=== PATIENT | female | born 1950 | race Caucasian/White ===

== ENCOUNTER 2025-05-16 08:02 | Observation (INO) ==
--- NOTE | 2025-05-16 08:26 | Emergency Department Note ---
Impression & Plan Dizziness, Mild cognitive impairment, Shortness of breath ED Provider Note NAME: JOSE BOB AGE: 74 SEX: F : 1950 ARRIVES VIA: Walk-In INFORMANT: Patient ED PROVIDER(S): Yash Moe DO CHIEF COMPLAINT: Dizzy HPI: Patient is a 74-year-old female with a past medical history of an acoustic neuroma, mild cognitive impairment who presents to the ER for dizziness and shortness of breath. When she woke up she noticed that she was short of breath and she is very unsteady on her feet and cannot walk as she feels like she is going to fall over and everything is spinning. She denies any focal weakness or numbness in the arms or legs but does feel weaker all over. No dysuria, urgency or frequency. She does admit to some mild chest discomfort as well. No other exacerbating or remitting factors. ADDITIONAL HISTORY OBTAINED: Son is present at bedside notes that everything habits happened since waking up this morning Chronic Medical/Social Conditions Affecting Care: Per HPI PAST MEDICAL HISTORY:See Below PAST SURGICAL HISTORY:See Below FAMILY HISTORY:See Below SOCIAL HISTORY:See Below HOME MEDICATIONS:See Below ALLERGIES:See Below VITALS:See Below PHYSICAL EXAMINATION: GENERAL: Sitting up in bed, alert, well appearing, well nourished, no distress, non-toxic EYE EXAM: normal conjunctiva. PERRL and EOM's intact. OROPHARYNX: no exudate, no erythema, lips, buccal mucosa, and tongue normal and mucous membranes are moist NECK: supple, no nuchal rigidity, no adenopathy, non-tender LUNGS: Clear to auscultation. Normal chest wall mechanics HEART: no murmurs, S1 normal and S2 normal ABDOMEN: abdomen soft, non-tender, normo-active bowel sounds, no masses, no rebound or guarding. BACK: Back is symmetrical on inspection and there is no deformity, no midline tenderness, no CVA tenderness. SKIN: no rashes and no bruising UPPER EXTREMITIES: upper extremities are grossly normal. LOWER EXTREMITIES: No pitting edema. NEURO EXAM: Normal sensorium, cranial nerves II-XII intact, normal speech, no weakness of arms, no weakness of legs. No drift. Finger to nose intact. Gross sensation intact. MEDICAL DECISION MAKING: Patient is a 74-year-old female who presents ER with a past medical history of mild cognitive impairment for shortness of breath, chest pain and dizziness. Symptoms started when she woke up earlier today. Per the son who provides additional history as she is having trouble walking. IV was established and blood work was obtained. Labs show no significant leukocytosis or anemia. D- dimer was elevated. BMP with mild hypokalemia 3.4. LFTs bilirubin and magnesium was unremarkable. Troponin was negative. Lipase was normal. CT angios of the head and neck were negative. CT angio chest was obtained and was negative. Patient was given Antivert and updated at bedside. Discussed case with the hospitalist for further evaluation management treatment due to trouble walking. I do favor a portion of this is likely anxiety as the tachypnea comes and goes when she is not talking but when she is talking she has normal fluid full conversations without difficulty. Consults/Care Managements Discussions: Per [facility] Triage Nursing notes reviewed. Limited review of prior medical records performed Vital Signs: reviewed and remarkable for no significant abnormalities Differential diagnosis: Differential diagnosis includes etiologies such as benign positional vertigo, dehydration, hypovolemia, anemia, tumor, infection, hypoglycemia, electrolyte abnormalities, cardiac sources, intracerebral event, toxicologic, neurological, as well as others were entertained. ER treatment provided: See below Diagnostics interpreted by me include EKG and cardiac monitoring as listed below: -Cardiac Monitoring: An order was placed for continuous cardiac monitoring. The monitor shows a rate of 70 with sinus rhythm. -ECG: none -Laboratory studies:Interpreted by me as stated above in MDM and shown below. Imaging studies: Xrays: As interpreted by me: Portable AP upright 1 view of the chest shows no focal Lutrate CTs show: CT angios of the head and neck were negative per radiology Procedures:none Critical Care: None Past Med/Surg History Problem List (Updated 05/16/25 @ 13:43 by Yash Moe DO) Shortness of breath (Acute) Vertigo Dizziness (Acute) Ulnar nerve neuropathy Acoustic neuroma Mild cognitive impairment (Acute) History of total thyroidectomy Papillary thyroid carcinoma Hypothyroidism (acquired) Medical History (Updated 05/16/25 @ 13:43 by Yash Moe DO) Mild cognitive impairment Hx of thyroid cancer History of hypothyroidism Surgical History Hx of foot surgery left Hx of lumbosacral spine surgery x2, most recent ~2020 or earlier, lower back History of total left knee replacement History of total right knee replacement Hx of colonoscopy (2023) Hx of wisdom tooth extraction Hx of total thyroidectomy ~2018 Family History Family history non-contributory Bleeding ulcer Mother Thyroid cancer Sister Diabetes Father Arthritis Father Lymphoma Sister Parkinson disease Brother Social History Smoking Status: Never smoker Second Hand Exposure: No; Do You Dip or Chew Tobacco: No; Hx Alcohol Use: Yes Alcohol type: wine Alcohol Intake Frequency: 2-4 x/Month Hx Substance Use: No Preferred Language: [place]al[place] Communication Ability: Effective Technician Support Engineer Required: No Beliefs That Will Affect Care: None Current Living Situation: Alone Feels Safe at Home: Yes Assistive Devices: Glasses Allergies Allergies Allergy/AdvReac Type Severity Reaction Status Date / Time amoxicillin Allergy Severe Anaphylaxis Verified 03/03/25 10:58 adhesive Allergy Mild RED LEMUEL Verified 03/03/25 10:58 ON SKIN gabapentin Allergy Mild Dizziness Verified 03/03/25 10:58 Penicillins Allergy Mild RASH Verified 03/03/25 10:58 Home Meds Home Medications Medication Instructions Recorded Confirmed multivitamin 1 tab PO HS 01/18/19 05/16/25 cholecalciferol (vitamin D3) 25 2,000 unit PO HS 03/09/24 05/16/25 mcg (1,000 unit) capsule (Vitamin D3) triamcinolone acetonide 55 mcg 1 spray intranasal DAILY PRN 03/09/24 05/16/25 nasal spray aerosol (Nasacort Congestion Allergy) Prevagen 1 cap PO QAM 02/17/25 05/16/25 levothyroxine 100 mcg tablet 100 mcg PO QAM 02/17/25 05/16/25 acetaminophen 500 mg tablet 1,000 mg PO Q8H PRN Pain 04/01/25 05/16/25 (Tylenol Extra Strength) Previous Rx's Medication Instructions Recorded hydrocodone 5 mg-acetaminophen 325 1 tab PO Q4H PRN pain #10 tabs 03/03/25 mg tablet ibuprofen 200 mg tablet (Advil) 600 mg (3 x 200 mg) PO QID PRN 03/03/25 fever or pain #30 tabs Results & Data (ED) Vital Signs Vital Signs - 24 hr 08/11/25 08:03 05/16/25 08:03 05/16/25 08:38 Temperature 36.6 C Temperature Source Temporal Artery Scan Pulse Rate 84 84 Pulse Rate [Apical] Pulse Rhythm Regular Pulse Rhythm [Apical] Pulse Strength [Apical] Respiratory Rate 18 18 Respiratory Effort / Characteristics Respiratory Depth Respiratory Pattern Blood Pressure 150/90 H Blood Pressure [Right Arm] Blood Pressure Mean 110 Blood Pressure Mean [Right Arm] Pulse Oximetry 100 100 Oxygen Delivery Method Room Air Room Air Sepsis Recent Fever Within 48 Hours No Sepsis New/Unexplained Change in Mental Status N/A Sepsis Action Taken by Nursing No Action Required 05/16/25 08:57 05/16/25 09:21 05/16/25 09:30 Temperature Temperature Source Pulse Rate 76 66 63 Pulse Rate [Apical] Pulse Rhythm Pulse Rhythm [Apical] Pulse Strength [Apical] Respiratory Rate 23 22 Respiratory Effort / Characteristics Respiratory Depth Respiratory Pattern Blood Pressure Blood Pressure [Right Arm] Blood Pressure Mean Blood Pressure Mean [Right Arm] Pulse Oximetry Oxygen Delivery Method Sepsis Recent Fever Within 48 Hours Sepsis New/Unexplained Change in Mental Status Sepsis Action Taken by Nursing 05/16/25 10:03 05/16/25 10:15 05/16/25 11:36 Temperature Temperature Source Pulse Rate 59 L Pulse Rate [Apical] 61 64 Pulse Rhythm Pulse Rhythm [Apical] Regular Regular Pulse Strength [Apical] Normal Respiratory Rate 18 15 18 Respiratory Effort / Characteristics Non-Labored Non-Labored Spontaneous Respiratory Depth Normal Normal Respiratory Pattern Regular Regular Blood Pressure Blood Pressure [Right Arm] 180/103 H 160/93 H Blood Pressure Mean Blood Pressure Mean [Right Arm] 128 115 Pulse Oximetry 100 93 Oxygen Delivery Method Room Air Room Air Sepsis Recent Fever Within 48 Hours Sepsis New/Unexplained Change in Mental Status Sepsis Action Taken by Nursing 05/16/25 12:50 Temperature Temperature Source Pulse Rate Pulse Rate [Apical] 65 Pulse Rhythm Pulse Rhythm [Apical] Pulse Strength [Apical] Normal Respiratory Rate 18 Respiratory Effort / Characteristics Non-Labored Spontaneous Respiratory Depth Normal Respiratory Pattern Regular Blood Pressure Blood Pressure [Right Arm] 154/89 H Blood Pressure Mean Blood Pressure Mean [Right Arm] 110 Pulse Oximetry 98 Oxygen Delivery Method Room Air Sepsis Recent Fever Within 48 Hours Sepsis New/Unexplained Change in Mental Status Sepsis Action Taken by Nursing Laboratory Data 05/16/25 08:50 05/16/25 08:50 Lab Results 05/16/25 05/16/25 Range/Units 08:50 12:13 WBC 7.64 (4.8-10.8) K/ul RBC 5.45 H (4.20-5.40) M/uL Hgb 16.4 H (12.0-16.0) g/dl Hct 46.2 (37.0-47.0) % MCV 84.8 (80.0-100.0) fL MCH 30.1 (25.0-34.0) pg MCHC 35.5 (32.0-36.0) g/dL RDW Std Deviation 39.7 (36.4-46.3) fL RDW Coeff of Corrina 13.1 (11.5-14.5) % Plt Count 283 (130-400) K/uL MPV 10.1 (9.4-12.4) fL Immature Gran % (Auto) 0.3 % Neut % (Auto) 65.0 % Lymph % (Auto) 26.4 % [place]ell % (Auto) 6.7 % Eos % (Auto) 0.8 % Baso % (Auto) 0.8 % Neut # (Auto) 4.97 (1.40-6.50) K/uL Lymph # (Auto) 2.02 (1.20-3.40) K/uL [place]ell # (Auto) 0.51 (0.11-0.59) K/uL Eos # (Auto) 0.06 (0.00-0.50) K/uL Baso # (Auto) 0.06 (0.00-0.20) K/uL Immature Gran # (Auto) 0.02 (0.01-0.20) K/uL D-Dimer 730 H* (0-500) ug/L FEU Sodium 141 (136-145) mmol/L Potassium 3.4 L (3.5-5.1) mmol/L Chloride 107 (98-107) mmol/L Carbon Dioxide 23 (21-32) mmol/L Anion Gap 11 (3-11) BUN 17 (6-23) mg/dl Creatinine 0.80 (0.6-1.2) mg/dl Est Cr Clr Drug Dosing Not Reportable eGFR 76.31 BUN/Creatinine Ratio 21.3 H (10-20) Glucose 87 (70-99(Fasting)) mg/dl Calcium 9.9 (8.6-10.3) mg/dl Magnesium 2.0 (1.7-2.4) mg/dl Total Bilirubin 1.2 H (0.2-1.0) mg/dl AST 22 (13-39) U/L ALT 19 (7-52) U/L Alkaline Phosphatase 123 H (34-104) U/L Troponin I High Sens 5.6 (0-14) pg/ml Total Protein 7.4 (6.0-8.3) gm/dl Albumin 4.5 (3.4-5.0) gm/dl Globulin 2.9 (2.5-4.0) gm/dl Albumin/Globulin Ratio 1.6 (0.9-2) Lipase 32 (11-82) U/L Vitamin B12 533 (180-914) pg/ml Administered Medications Atorvastatin Calcium (Atorvastatin 20 Mg Tab) [facility] [place] Stop: 06/15/25 12:44 Last Admin: 05/16/25 13:30 Dose: 20 mg Documented By: GGG Discontinued Medications Aspirin (Aspirin 81 Mg Chew) 162 mg PO NOW STA Stop: 05/16/25 12:40 Last Admin: 05/16/25 12:48 Dose: 162 mg Documented By: RADHA Ioversol (Optiray 320 125ml) 120 ml IV ONCE ONE Stop: 05/16/25 10:40 Last Admin: 05/16/25 10:39 Dose: 120 ml Documented By: ABS Meclizine HCl (Meclizine Hcl 25 Mg Tab) 25 mg PO NOW STA Stop: 05/16/25 11:31 Last Admin: 05/16/25 11:36 Dose: 25 mg Documented By: GGG Imaging Data Radiologist's Impression: Chest X-Ray 05/16/25 08:20 XR chest 1V portable CLINICAL HISTORY: Chest pain, nonspecific COMPARISON STUDY: 01/18/2019 FINDINGS: Heart size and pulmonary vasculature are normal. There is mild elevation of the right hemidiaphragm and mild blunting of the right costophrenic angle. Otherwise no consolidation or pleural effusion seen. No pneumothorax. IMPRESSION: 1. Mild elevation of the right hemidiaphragm. Mild blunting of the right costophrenic angle could be due to elevation of the hemidiaphragm or trace right pleural effusion. 2. No other acute findings seen. ACT 112: Negative or not required by law. Electronically signed by: Haresh Pineda M.D. 05/16/2025 8:37 AM Chest CTA 05/16/25 10:12 CT angio chest PE protocol CT DOSE: 1763.07 mGy.cm HISTORY: 74 years-old Female with + dd and sob. Acute shortness of breath with elevated d-dimer TECHNIQUE: Multiple CTA images of the chest were obtained after the intravenous administration of 120. ml Optiray. Coronal and sagittal MIPS were obtained from the axial data set and were submitted for review. All measurements were obtained according to NASCET criteria. A dose lowering technique was utilized adhering to the principles of ALARA. COMPARISON: Chest radiograph of same day, CTA abdomen and pelvis 12/15/2023, chest radiograph 01/18/2019. FINDINGS: CTA: Moderate cardiomegaly. Mild coronary artery calcifications. No thoracic aortic aneurysm or dissection. Patency of the image great vessels. Suboptimal evaluation of the pulmonary arterial tree secondary to contrast bolus timing. No central pulmonary emboli are seen. CT CHEST: No thyroid nodule identified. No lymphadenopathy. Chronic mild right hemidiaphragmatic elevation. No pneumothorax, pleural effusion or airspace consolidation. Respiratory motion limits the study. No suspicious pulmonary nodules or masses. Central airways are patent. Hypodense lesions of the right kidney are incompletely characterized on this study and favor probable cysts. Unremarkable soft tissues. No acute fracture. Degenerative changes of the shoulders and spine. Degenerative related ossify loose bodies within the right subscapularis recess. IMPRESSION: 1. Limited exam as above. No central pulmonary emboli identified. 2. No pleural effusion or airspace consolidation typical for pneumonia. 3. Unchanged chronic mild right hemidiaphragmatic elevation. ACT 112: Negative or not required by law. The above report was generated using voice recognition software. It may contain grammatical, syntax or spelling errors. Electronically signed by: Jarret Chin M.D. 05/16/2025 11:01 AM Head CTA 05/16/25 10:12 CT angio neck with con, CT angio head wo/w CLINICAL HISTORY: dizzy. TECHNIQUE: Noncontrast head CT was obtained. Following the IV administration of 120 of Optiray, CT angiogram of the neck and brain was performed from the aortic arch to the skull base. Images are reviewed in the axial, sagittal, and coronal planes. 3-D MIPS images are created and assessed. IV contrast was administered without complication. All measurements were calculated based on NASCET criteria. A dose lowering technique was utilized adhering to the principles of ALARA. CT DOSE: 1763 COMPARISON STUDY: None FINDINGS: Noncontrast head CT: There is motion artifact. No intracranial hemorrhage seen. No mass effect, midline shift, or hydrocephalus. No skull fracture seen. CTA: Bilateral common and internal carotid arteries and bilateral vertebral arteries show no significant narrowing or occlusion. Basilar artery is patent. Anterior, middle, and posterior cerebral arteries are patent bilaterally. There are diffuse degenerative changes at the cervical spine. There is a vertebral body hemangioma at C6. IMPRESSION: 1. No acute findings. 2. No significant arterial narrowing or occlusion seen at the neck or brain. ACT 112: Negative or not required by law. The above report was generated using voice recognition software. It may contain grammatical, syntax or spelling errors. Electronically signed by: Haresh Pineda M.D. 05/16/2025 11:14 AM Neck CTA 05/16/25 10:12 CT angio neck with con, CT angio head wo/w CLINICAL HISTORY: dizzy. TECHNIQUE: Noncontrast head CT was obtained. Following the IV administration of 120 of Optiray, CT angiogram of the neck and brain was performed from the aortic arch to the skull base. Images are reviewed in the axial, sagittal, and coronal planes. 3-D MIPS images are created and assessed. IV contrast was administered without complication. All measurements were calculated based on NASCET criteria. A dose lowering technique was utilized adhering to the principles of ALARA. CT DOSE: 1763 COMPARISON STUDY: None FINDINGS: Noncontrast head CT: There is motion artifact. No intracranial hemorrhage seen. No mass effect, midline shift, or hydrocephalus. No skull fracture seen. CTA: Bilateral common and internal carotid arteries and bilateral vertebral arteries show no significant narrowing or occlusion. Basilar artery is patent. Anterior, middle, and posterior cerebral arteries are patent bilaterally. There are diffuse degenerative changes at the cervical spine. There is a vertebral body hemangioma at C6. IMPRESSION: 1. No acute findings. 2. No significant arterial narrowing or occlusion seen at the neck or brain. ACT 112: Negative or not required by law. The above report was generated using voice recognition software. It may contain grammatical, syntax or spelling errors. Electronically signed by: Haresh Pineda M.D. 05/16/2025 11:14 AM Discharge Plan Visit Data Chief Complaint: Respiratory Problems Stated Complaint: VERY SOB/DIZZY/DISORIENTED ED Provider: Yahs Moe Discharge Problem: Dizziness, Mild cognitive impairment, Shortness of breath Condition: Fair Forms Stand Alone Forms: My [facility] Prescriptions Prescriptions: No Action triamcinolone acetonide [Nasacort Allergy] 55 mcg aerosol,spray 1 spray intranasal DAILY PRN (Reason: Congestion) Rx Instructions: administer into each nostril acetaminophen [Tylenol Extra Strength] 500 mg tablet 1,000 mg PO Q8H PRN (Reason: Pain) multivitamin Tablet 1 tab PO HS cholecalciferol (vitamin D3) [Vitamin D3] 25 mcg (1,000 unit) capsule 2,000 unit PO HS Prevagen 1 cap PO QAM levothyroxine 100 mcg tablet 100 mcg PO QAM ibuprofen [Advil] 200 mg tablet 600 mg PO QID PRN (Reason: fever or pain) Qty: 30 0RF hydrocodone-acetaminophen 5-325 mg tablet 1 tab PO Q4H PRN (Reason: pain) Qty: 10 0RF Rx Instructions: 1-2 tabs every 4-6 hours as needed for pain Referrals Referrals: Nam Pacheco MD [Primary Care Provider] -
--- NOTE | 2025-05-16 08:38 | XRay Report ---
XR chest 1V portable CLINICAL HISTORY: Chest pain, nonspecific COMPARISON STUDY: 01/18/2019 FINDINGS: Heart size and pulmonary vasculature are normal. There is mild elevation of the right hemid iaphragm and mild blunting of the right costophrenic angle. Otherwise no consolidation or pleural eff usion seen. No pneumothorax. IMPRESSION: 1. Mild elevation of the right hemidiaphragm. Mild blunting of the right costophrenic angle could be due to elevation of the hemidiaphragm or trace right pleural effusion. 2. No other acute findings seen. ACT 112: Negative or not required by law. Electronically signed by: Haresh Pineda M.D. 05/16/2025 8:37 AM
[2025-05-16 09:06] LABS: Hematocrit (blood only) 46.2 % (37.0-47.0); Hemoglobin 16.4 g/dl (12.0-16.0); Immature Granulocytes # (auto) 0.02 K/uL (0.01-0.20); Immature Granulocytes % (auto) 0.3 %; Mean Corpuscular Hemoglobin 30.1 pg (25.0-34.0); Mean Corpuscular Volume 84.8 fL (80.0-100.0); Platelet Count 283 K/uL (130-400); RDW Standard Deviation 39.7 fL (36.4-46.3); Red Blood Count 5.45 M/uL (4.20-5.40); White Blood Count 7.64 K/ul (4.8-10.8)
[2025-05-16 09:28] LABS: Alanine Aminotransferase 19 U/L (7-52); Albumin Globulin Ratio 1.6 (0.9-2); Alkaline Phosphatase 123 U/L (34-104); Anion Gap 11 (3-11); Bilirubin,Total 1.2 mg/dl (0.2-1.0); Blood Urea Nitrogen 17 mg/dl (6-23); Calcium 9.9 mg/dl (8.6-10.3); Carbon Dioxide 23 mmol/L (21-32); Chloride 107 mmol/L (98-107); Globulin 2.9 gm/dl (2.5-4.0); Glucose 87 mg/dl (70-99(Fasting)); Lipase 32 U/L (11-82); Potassium 3.4 mmol/L (3.5-5.1); Sodium 141 mmol/L (136-145); Total Protein 7.4 gm/dl (6.0-8.3)
[2025-05-16] MEDS: OPTIRAY 320 125ml IV ONE (10:39)
--- NOTE | 2025-05-16 11:03 | CT Scan Report ---
CT angio chest PE protocol CT DOSE: 1763.07 mGy.cm HISTORY: 74 years-old Female with + dd and sob. Acute shortness of breath with elevated d-dimer TECHNIQUE: Multiple CTA images of the chest were obtained after the intravenous administration of 120 . ml Optiray. Coronal and sagittal MIPS were obtained from the axial data set and were submitted for review. All measurements were obtained according to NASCET criteria. A dose lowering technique was utilized adhering to the principles of ALARA. COMPARISON: Chest radiograph of same day, CTA abdomen and pelvis 12/15/2023, chest radiograph 9. FINDINGS: CTA: Moderate cardiomegaly. Mild coronary artery calcifications. No thoracic aortic aneurysm or dissection . Patency of the image great vessels. Suboptimal evaluation of the pulmonary arterial tree secondary to contrast bolus timing. No central pulmonary emboli are seen. CT CHEST: No thyroid nodule identified. No lymphadenopathy. Chronic mild right hemidiaphragmatic elevation. No pneumothorax, pleural effusion or airspace consolidation. Respiratory motion limits the study. No rhea picious pulmonary nodules or masses. Central airways are patent. Hypodense lesions of the right kidney are incompletely characterized on this study and favor probable cysts. Unremarkable soft tissues. No acute fracture. Degenerative changes of the shoulders and spine . Degenerative related ossify loose bodies within the right subscapularis recess. IMPRESSION: 1. Limited exam as above. No central pulmonary emboli identified. 2. No pleural effusion or airspace consolidation typical for pneumonia. 3. Unchanged chronic mild right hemidiaphragmatic elevation. ACT 112: Negative or not required by law. The above report was generated using voice recognition software. It may contain grammatical, syntax o r spelling errors. Electronically signed by: Jarret Chin M.D. 05/16/2025 11:01 AM
--- NOTE | 2025-05-16 11:16 | CT Scan Report ---
CT angio neck with con, CT angio head wo/w CLINICAL HISTORY: dizzy. TECHNIQUE: Noncontrast head CT was obtained. Following the IV administration of 120 of Optiray, CT an giogram of the neck and brain was performed from the aortic arch to the skull base. Images are review ed in the axial, sagittal, and coronal planes. 3-D MIPS images are created and assessed. IV contrast was administered without complication. All measurements were calculated based on NASCET criteria. A dose lowering technique was utilized adhering to the principles of ALARA. CT DOSE: 1763 COMPARISON STUDY: None FINDINGS: Noncontrast head CT: There is motion artifact. No intracranial hemorrhage seen. No mass effect, midli ne shift, or hydrocephalus. No skull fracture seen. CTA: Bilateral common and internal carotid arteries and bilateral vertebral arteries show no signific ant narrowing or occlusion. Basilar artery is patent. Anterior, middle, and posterior cerebral arteri es are patent bilaterally. There are diffuse degenerative changes at the cervical spine. There is a v ertebral body hemangioma at C6. IMPRESSION: 1. No acute findings. 2. No significant arterial narrowing or occlusion seen at the neck or brain. ACT 112: Negative or not required by law. The above report was generated using voice recognition software. It may contain grammatical, syntax o r spelling errors. Electronically signed by: Haresh Pineda M.D. 05/16/2025 11:14 AM
[2025-05-16] MEDS: MECLIZINE HCL 25 MG TAB PO STA (11:36)
--- NOTE | 2025-05-16 12:16 | Electrocardiogram Report ---
Test Reason : Blood Pressure : */* mmHG Vent. Rate : 77 BPM Atrial Rate : 77 BPM P-R Int : 142 ms QRS Dur : 100 ms QT Int : 436 ms P-R-T Axes : -29 -29 13 degrees QTcB Int : 493 ms Sinus rhythm with occasional Premature ventricular complexes Left ventricular hypertrophy with repolarization abnormality ( R in aVL ) Abnormal ECG When compared with ECG of 15-Dec-2023 03:41, Premature ventricular complexes are now Present Nonspecific T wave abnormality now evident in Anterolateral leads Confirmed by Bruno Avery ([id number]) on 05/16/2025 12:16:06 PM Referred By: REFERRED SELF Confirmed By: Bruno Avery
[2025-05-16] MEDS ORDERED: ONDANSETRON INJ 2 MG/ML 2 ML VIAL IV PRN (12:40)
[2025-05-16] MEDS ORDERED: MELATONIN 3 MG TAB PO PRN (12:40)
[2025-05-16] MEDS ORDERED: ACETAMINOPHEN 325 MG TAB PO PRN (12:40)
[2025-05-16] MEDS: ASPIRIN 81 MG CHEW PO STA (12:48)
--- NOTE | 2025-05-16 12:59 | History & Physical Report ---
Date of Service May 16, 2025 Assessment & Plan (1) Dizziness: (2) Vertigo: Plan Trista Arrington is a 74 yo male with PMH of thyroid cancer s/p surgery, minimal cognitive impairment, hearing loss. cervical and lumbar surgery on day of admission, 05/16/2025. she's wake up with severe dizziness on 5:30am d-dimer elevated; CTA head and neck negative; CTA chest negative she will be under observation for brain MRI w/wo contrast and need PT evaluation 1. dizziness 2. vertigo 3. thyroid cancer s/p surgery 4. hypothyroidism 5. minimal cognitive impairment 6. hearing loss 7. hx of cervical spine and lumbar surgery 8. hx of knee surgery 1. vertigo started at 5:30am suspect this is benign parosymal vertigo brain MRI w/wo contrast she s/p CTA head and CTA chest echo and event monitoring PT evaluation 2. hypothyroidism, thyroid cancer synthyroid daily morning 3. MCI f/u on b12 level discussed f/u with sleep medicine to screen for sleep apnea deposition if brain MRI and PT cleared dc home tomorrow History of Present Illness Chief Complaint: dizziness, vertigo since 5:30am TIA r/o Primary Care Provider: Nam Palomares MD Trista Arrington is a 74 yo woman with PMH of thyroid cancer s/ surgery, hypothyroidism, PCN allergy (anaphylaxis) minimal cognitive impairment, hearing loss. she's has neck surgery and back surgery done at [facility] years ago. on 05/16/2025, she's' wake up with severe vertigo, dizziness at 5:30am. she's continue to noticing room spinning sensation and here for evaluation in the ED, d-dimer elevated and s/p brain CTA and CTA chest. her CTA negative for large vessel infarct. she denied worsening slurred speech, no new numbness, no weakness she will be under observation for TIA evaluation and need PT and OT clearance Allergies Allergy/AdvReac Type Severity Reaction Status Date / Time amoxicillin Allergy Severe Anaphylaxis Verified 03/03/25 10:58 adhesive Allergy Mild RED LEMUEL Verified 03/03/25 10:58 ON SKIN gabapentin Allergy Mild Dizziness Verified 03/03/25 10:58 Penicillins Allergy Mild RASH Verified 03/03/25 10:58 Home Medications Medication Instructions Recorded Confirmed Type multivitamin 1 tab PO HS 01/18/19 05/16/25 History cholecalciferol (vitamin D3) 25 2,000 unit PO HS 03/09/24 05/16/25 History mcg (1,000 unit) capsule (Vitamin D3) triamcinolone acetonide 55 mcg 1 spray intranasal DAILY PRN 03/09/24 05/16/25 History nasal spray aerosol (Nasacort Congestion Allergy) Prevagen 1 cap PO QAM 02/17/25 05/16/25 History levothyroxine 100 mcg tablet 100 mcg PO QAM 02/17/25 05/16/25 History hydrocodone 5 mg-acetaminophen 325 1 tab PO Q4H PRN pain #10 tabs 03/03/25 05/16/25 Rx mg tablet ibuprofen 200 mg tablet (Advil) 600 mg (3 x 200 mg) PO QID PRN 03/03/25 05/16/25 Rx fever or pain #30 tabs acetaminophen 500 mg tablet 1,000 mg PO Q8H PRN Pain 04/01/25 05/16/25 History (Tylenol Extra Strength) Past Med/Surg History Problem List (Updated 05/16/25 @ 12:59 by Daniele Santos DO) Vertigo Dizziness Ulnar nerve neuropathy Acoustic neuroma Mild cognitive impairment History of total thyroidectomy Papillary thyroid carcinoma Hypothyroidism (acquired) Medical History (Updated 05/16/25 @ 12:59 by Daniele Santos DO) Mild cognitive impairment Hx of thyroid cancer History of hypothyroidism Surgical History Hx of foot surgery left Hx of lumbosacral spine surgery x2, most recent ~2020 or earlier, lower back History of total left knee replacement History of total right knee replacement Hx of colonoscopy (2023) Hx of wisdom tooth extraction Hx of total thyroidectomy ~2018 Family History Family history non-contributory Bleeding ulcer Mother Thyroid cancer Sister Diabetes Father Arthritis Father Lymphoma Sister Parkinson disease Brother Social History Smoking Status: Never smoker Second Hand Exposure: No; Do You Dip or Chew Tobacco: No; Hx Alcohol Use: Yes Alcohol type: wine Alcohol Intake Frequency: 2-4 x/Month Hx Substance Use: No Preferred Language: Georgian Communication Ability: Effective Production Team Manager Required: No Beliefs That Will Affect Care: None Current Living Situation: Alone Feels Safe at Home: Yes Assistive Devices: Glasses Review of Systems Review of Systems: Constitutional: No Weight Change, No Fever, No Chills, No Night Sweats, No Fatigue, No Malaise ENT/Mouth: + for hearing loss; Cardiovascular: No Chest Pain, No SOB, No PND, No Dyspnea on Exertion, No Orthopnea, No Claudication, No Edema, No Palpitations Respiratory: No Cough, No Sputum, No Wheezing, no smoking Gastrointestinal: No Nausea, No Vomiting, No Diarrhea, No Constipation, No Pain, No Heartburn, No Anorexia, No Dysphagia, No Hematochezia, Genitourinary: no dysuria Musculoskeletal: + for hx of back surgery and neck surgery ; + for knee surgery Neuro: + for dizziness; no numbness, no weakness; no headache; + 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 WEIGHT/BMI reviewed. GEN: Healthy appearing, well-developed, NAD. Neuro: AAOx3; normal finger to nose test; 5/5 strength; no pronator drift. able to raise feet against gravity for more than 5 seconds; sensation symmetric + for hearing loss -Head: NC/AT; -Eyes: PERRL, EOMI. No discharge or redn ess; -Ears: External ears are normal. Normal TMs. NECK: Supple, with no masses. CV: RRR, no m/r/g. LUNGS: CTAB, no w/r/c. ABD: Soft, NT/ND, NBS, no masses or organomegaly. MSK: + for knee replacement surgery scar EXT: No clubbing, cyanosis, or edema. Results & Data Results & Data Vital Signs (Past 12 Hours) Vital Signs Temp Pulse Pulse Resp BP BP Pulse Ox 05/16/25 11:36 64 18 160/93 H 93 05/16/25 10:15 59 L 15 05/16/25 10:03 61 18 180/103 H 100 05/16/25 09:30 63 22 05/16/25 09:21 66 23 05/16/25 08:57 76 05/16/25 08:38 84 18 100 05/16/25 08:03 05/16/25 08:03 36.6 C 84 18 150/90 H 100 O2 Del Method 05/16/25 11:36 Room Air 05/16/25 10:15 05/16/25 10:03 Room Air 05/16/25 09:30 05/16/25 09:21 05/16/25 08:57 05/16/25 08:38 Room Air 05/16/25 08:03 Room Air 05/16/25 08:03 Laboratory Results Laboratory Results - last 72 hr 05/16/25 05/16/25 08:50 12:13 WBC 7.64 RBC 5.45 H Hgb 16.4 H Hct 46.2 MCV 84.8 MCH 30.1 MCHC 35.5 RDW Std Deviation 39.7 RDW Coeff of Corrina 13.1 Plt Count 283 MPV 10.1 Immature Gran % (Auto) 0.3 Neut % (Auto) 65.0 Lymph % (Auto) 26.4 [place] % (Auto) 6.7 Eos % (Auto) 0.8 Baso % (Auto) 0.8 Neut # (Auto) 4.97 Lymph # (Auto) 2.02 [place] # (Auto) 0.51 Eos # (Auto) 0.06 Baso # (Auto) 0.06 Immature Gran # (Auto) 0.02 D-Dimer 730 H* Sodium 141 Potassium 3.4 L Chloride 107 Carbon Dioxide 23 Anion Gap 11 BUN 17 Creatinine 0.80 Est Cr Clr Drug Dosing Not Reportable eGFR 76.31 BUN/Creatinine Ratio 21.3 H Glucose 87 Calcium 9.9 Magnesium 2.0 Total Bilirubin 1.2 H AST 22 ALT 19 Alkaline Phosphatase 123 H Troponin I High Sens 5.6 Total Protein 7.4 Albumin 4.5 Globulin 2.9 Albumin/Globulin Ratio 1.6 Lipase 32 Diagnostic Findings Chest X-Ray 05/16/25 08:20 XR chest 1V portable CLINICAL HISTORY: Chest pain, nonspecific COMPARISON STUDY: 01/18/2019 FINDINGS: Heart size and pulmonary vasculature are normal. There is mild elevation of the right hemidiaphragm and mild blunting of the right costophrenic angle. Otherwise no consolidation or pleural effusion seen. No pneumothorax. IMPRESSION: 1. Mild elevation of the right hemidiaphragm. Mild blunting of the right costophrenic angle could be due to elevation of the hemidiaphragm or trace right pleural effusion. 2. No other acute findings seen. ACT 112: Negative or not required by law. Electronically signed by: Haresh Pineda M.D. 05/16/2025 8:37 AM Chest CTA 05/16/25 10:12 CT angio chest PE protocol CT DOSE: 1763.07 mGy.cm HISTORY: 74 years-old Female with + dd and sob. Acute shortness of breath with elevated d-dimer TECHNIQUE: Multiple CTA images of the chest were obtained after the intravenous administration of 120. ml Optiray. Coronal and sagittal MIPS were obtained from the axial data set and were submitted for review. All measurements were obtained according to NASCET criteria. A dose lowering technique was utilized adhering to the principles of ALARA. COMPARISON: Chest radiograph of same day, CTA abdomen and pelvis 12/15/2023, chest radiograph 01/18/2019. FINDINGS: CTA: Moderate cardiomegaly. Mild coronary artery calcifications. No thoracic aortic aneurysm or dissection. Patency of the image great vessels. Suboptimal evaluation of the pulmonary arterial tree secondary to contrast bolus timing. No central pulmonary emboli are seen. CT CHEST: No thyroid nodule identified. No lymphadenopathy. Chronic mild right hemidiaphragmatic elevation. No pneumothorax, pleural effusion or airspace consolidation. Respiratory motion limits the study. No suspicious pulmonary nodules or masses. Central airways are patent. Hypodense lesions of the right kidney are incompletely characterized on this study and favor probable cysts. Unremarkable soft tissues. No acute fracture. Degenerative changes of the shoulders and spine. Degenerative related ossify loose bodies within the right subscapularis recess. IMPRESSION: 1. Limited exam as above. No central pulmonary emboli identified. 2. No pleural effusion or airspace consolidation typical for pneumonia. 3. Unchanged chronic mild right hemidiaphragmatic elevation. ACT 112: Negative or not required by law. The above report was generated using voice recognition software. It may contain grammatical, syntax or spelling errors. Electronically signed by: Jarret Chin M.D. 05/16/2025 11:01 AM Head CTA 05/16/25 10:12 CT angio neck with con, CT angio head wo/w CLINICAL HISTORY: dizzy. TECHNIQUE: Noncontrast head CT was obtained. Following the IV administration of 120 of Optiray, CT angiogram of the neck and brain was performed from the aortic arch to the skull base. Images are reviewed in the axial, sagittal, and coronal planes. 3-D MIPS images are created and assessed. IV contrast was administered without complication. All measurements were calculated based on NASCET criteria. A dose lowering technique was utilized adhering to the principles of ALARA. CT DOSE: 1763 COMPARISON STUDY: None FINDINGS: Noncontrast head CT: There is motion artifact. No intracranial hemorrhage seen. No mass effect, midline shift, or hydrocephalus. No skull fracture seen. CTA: Bilateral common and internal carotid arteries and bilateral vertebral arteries show no significant narrowing or occlusion. Basilar artery is patent. Anterior, middle, and posterior cerebral arteries are patent bilaterally. There are diffuse degenerative changes at the cervical spine. There is a vertebral body hemangioma at C6. IMPRESSION: 1. No acute findings. 2. No significant arterial narrowing or occlusion seen at the neck or brain. ACT 112: Negative or not required by law. The above report was generated using voice recognition software. It may contain grammatical, syntax or spelling errors. Electronically signed by: Haresh Pineda M.D. 05/16/2025 11:14 AM Neck CTA 05/16/25 10:12 CT angio neck with con, CT angio head wo/w CLINICAL HISTORY: dizzy. TECHNIQUE: Noncontrast head CT was obtained. Following the IV administration of 120 of Optiray, CT angiogram of the neck and brain was performed from the aortic arch to the skull base. Images are reviewed in the axial, sagittal, and coronal planes. 3-D MIPS images are created and assessed. IV contrast was administered without complication. All measurements were calculated based on NASCET criteria. A dose lowering technique was utilized adhering to the principles of ALARA. CT DOSE: 1763 COMPARISON STUDY: None FINDINGS: Noncontrast head CT: There is motion artifact. No intracranial hemorrhage seen. No mass effect, midline shift, or hydrocephalus. No skull fracture seen. CTA: Bilateral common and internal carotid arteries and bilateral vertebral obdulio theresa show no significant narrowing or occlusion. Basilar artery is patent. Anterior, middle, and posterior cerebral arteries are patent bilaterally. There are diffuse degenerative changes at the cervical spine. There is a vertebral body hemangioma at C6. IMPRESSION: 1. No acute findings. 2. No significant arterial narrowing or occlusion seen at the neck or brain. ACT 112: Negative or not required by law. The above report was generated using voice recognition software. It may contain grammatical, syntax or spelling errors. Electronically signed by: Haresh Pineda M.D. 05/16/2025 11:14 AM Medications Administered Current Inpatient Medications Acetaminophen (Acetaminophen 325 Mg Tab) 650 mg PO Q4H PRN PRN Reason: pain/fever Stop: 06/15/25 12:39 Atorvastatin Calcium (Atorvastatin 20 Mg Tab) 20 mg PO QAM PASTORA Stop: 06/15/25 12:44 Melatonin (Melatonin 3 Mg Tab) 3 mg PO HS PRN PRN Reason: Insomnia Stop: 06/15/25 12:39 Ondansetron HCl (Ondansetron Inj 2 Mg/Ml 2 Ml Vial) 4 mg IV Q6H PRN PRN Reason: Nausea Stop: 06/15/25 12:39 Code Status & VTE Plan VTE Prophylaxis Plan VTE Prophylaxis will be ordered: Yes PG Care Time/CCT Total # of Minutes Spent Total Time Spent with Patient: Total time spent is greater than 50% in coordination of care (as documented) at patient's floor/unit and/or counseling patient: Coding Level of Care Code 44317 INT INP/OBS CARE 1/40MIN Diagnoses Dizziness R42 Vertigo R42 Time Spent (min) 40
[2025-05-16] MEDS: ATORVASTATIN 20 MG TAB PO SCH (13:30)
[2025-05-16] MEDS ORDERED: IBUPROFEN 600 MG TAB PO PRN (14:57)
[2025-05-16] MEDS ORDERED: FLUTICASONE PROPIONATE NA SPR 16 GM BTL PRN (15:00)
[2025-05-16] MEDS: GADOBUTROL 65ML VIAL IV ONE (15:10)
--- NOTE | 2025-05-16 15:58 | Magnetic Resonance Report ---
MR brain wo/w con HISTORY: 74 years-old Female vertigo, dizziness acute vertigo and dizziness COMPARISON: CTA head of same day, brain MR 06/10/2024 TECHNIQUE: Multiplanar multisequence MRI of the brain was obtained with and without IV contrast. FINDINGS: No restricted diffusion to suggest an acute or subacute infarct. Midline structures appear unremarkab le. Partially empty sella. No acute intracranial hemorrhage, midline shift, abnormal extra-axial kendra ection, hydrocephalus or intra-axial mass. Involutional changes with minimal T2/FLAIR hyperintense fo ci throughout the white matter, likely representing a degree of chronic microvascular ischemic diseas e. Cerebral venous sinuses and major arterial flow voids appear patent. Skull, orbits and soft tissues a re unremarkable. Mastoid air cells and paranasal sinuses are clear. Avidly enhancing lesion of the ri ght internal auditory canal redemonstrated measuring 12 x 8 x 6 mm, previously 8 x 4 x 4 mm. IMPRESSION: 1. No acute intracranial abnormality. No acute or subacute infarct. 2. Increased size of the right-sided acoustic schwannoma now measuring 12 mm. ACT 112: Negative or not required by law. The above report was generated using voice recognition software. It may contain grammatical, syntax o r spelling errors. Electronically signed by: Jarret Chin M.D. 05/16/2025 3:57 PM
[2025-05-16] MEDS: CYANOCOBALAMIN 1000 MCG/ML VIAL IM SCH (21:23)
[2025-05-16] MEDS: CHOLECALCIFEROL 25 MCG (1000 UNITS) TAB PO SCH (21:24)
[2025-05-16] MEDS: MULTIVITAMIN TAB PO SCH (21:24)
[2025-05-17] MEDS: LEVOTHYROXINE SODIUM 100 MCG TABLET PO SCH (05:45)
[2025-05-17 07:20] VITALS: RESP 20
[2025-05-17 08:03] LABS: Hematocrit (blood only) 48.2 % (37.0-47.0); Hemoglobin 16.5 g/dl (12.0-16.0); Mean Corpuscular Hemoglobin 29.8 pg (25.0-34.0); Mean Corpuscular Volume 87.0 fL (80.0-100.0); Platelet Count 267 K/uL (130-400); RDW Standard Deviation 41.1 fL (36.4-46.3); Red Blood Count 5.54 M/uL (4.20-5.40); White Blood Count 6.39 K/ul (4.8-10.8)
[2025-05-17 08:36] LABS: Anion Gap 9.0 (3-11); Blood Urea Nitrogen 19.0 mg/dl (6-23); Calcium 9.4 mg/dl (8.6-10.3); Carbon Dioxide 25.0 mmol/L (21-32); Chloride 107.0 mmol/L (98-107); Cholesterol 164.0 mg/dl (0-200); Creatinine Clr Calc Pharmacy 67.5 ml/min; Glucose 86.0 mg/dl (70-99(Fasting)); HDL Cholesterol 42.0 mg/dl; Potassium 3.1 mmol/L (3.5-5.1); Sodium 141.0 mmol/L (136-145); Triglycerides 132.0 mg/dl (0-150)
[2025-05-17] MEDS ORDERED: NON-FORMULARY MEDICATION (Prevagen 1 CAP) PO SCH (09:00)
[2025-05-17 10:46] VITALS: BP 144/85; PULSE 62; TEMP 97.3; O2SAT 99
[2025-05-17] MEDS ORDERED: POTASSIUM CHLORIDE 20 MEQ/15 ML UDC PO SCH (11:00)
--- NOTE | 2025-05-17 18:51 | Discharge Summary ---
Discharge Summary Date of Service May 17, 2025 Principal Dx & Hospital Course #1 = Principal Diagnosis (1) Dizziness: Trista is a 74 yo woman with PMH of cognitive impairment, hearing loss, acustoic neuroma, thyroid cancer has cervical and lumbar surgery on 05/16, she's was having room spinning sensation and dizziness and came her for evaluation, she is admitted for ambulatory dysfunction and CVA rule out. she s/p brain MRI w/wo contrast. found enlarging acuostic neuroma on the right side that is measuring 12mm. we discussed the finding and need for close ENT follow up. if she ended up needing surgery; she prefer to f/u with [facility] for evaluation her CTA head and neck negative for large vessel occlusion on 05/17, her vertigo and dizziness completely resolved she was provide with aspirin and statin for stroke protection. we discussed that her b12 is borderline low and will benefit from IM injection. she was starting on memantine as agreeable by the family. she should has polysomnography to rule out obstructive sleep apnea her son was updated. she was dc home on 05/17/2025 (2) Vertigo: Plan Trista Arrington is a 74 yo male with PMH of thyroid cancer s/p surgery, minimal cognitive impairment, hearing loss. cervical and lumbar surgery on day of admission, 05/16/2025. she's wake up with severe dizziness on 5:30am d-dimer elevated; CTA head and neck negative; CTA chest negative she will be under observation for brain MRI w/wo contrast and need PT evaluation 1. dizziness 2. vertigo 3. thyroid cancer s/p surgery 4. hypothyroidism 5. minimal cognitive impairment 6. hearing loss 7. hx of cervical spine and lumbar surgery 8. hx of knee surgery 1. vertigo started at 5:30am suspect this is benign parosymal vertigo brain MRI w/wo contrast she s/p CTA head and CTA chest echo and event monitoring PT evaluation 2. hypothyroidism, thyroid cancer synthyroid daily morning 3. MCI f/u on b12 level discussed f/u with sleep medicine to screen for sleep apnea deposition if brain MRI and PT cleared dc home tomorrow Notes For Next Care Provider referral to ENT for enlarging acoustic neuroma IM b12 shot started on memantine for cognitive impairment treatment for hearing loss aspirin and statin for stroke protection Admission HPI Per Admitting Provider Trista Arrington is a 74 yo woman with PMH of thyroid cancer s/ surgery, hypothyroidism, PCN allergy (anaphylaxis) minimal cognitive impairment, hearing loss. she's has neck surgery and back surgery done at [facility] years ago. on 05/16/2025, she's' wake up with severe vertigo, dizziness at 5:30am. she's continue to noticing room spinning sensation and here for evaluation in the ED, d-dimer elevated and s/p brain CTA and CTA chest. her CTA negative for large vessel infarct. she denied worsening slurred speech, no new numbness, no weakness she will be under observation for TIA evaluation and need PT and OT clearance Discharge Exam VITALS: Reviewed. WEIGHT/BMI reviewed. GEN: Healthy appearing, well-developed, NAD. PSYCH: Good Judgment. AOx3. Normal memory, mood, and affect. HEENT -Head: NC/AT; NECK: Supple, with no masses. CV: RRR, no m/r/g. LUNGS: CTAB, no w/r/c. ABD: Soft, NT/ND, NBS, no masses or organomegaly. : N/A MSK: No deformities, Normal gait. EXT: No clubbing, cyanosis, or edema. NEURO: Ambulating with no limitations. Normal muscle strength and tone. No focal deficits. normal finger to nose; no nystagmus; ambulating w/o assistance 5/5 strength ; hard of hearing. Discharge Plan Discharge Items Patient Disposition: Home - Self-Care Reason For Visit: DIZZYNESS, VERTIGO, TIA R/O Discharge Diagnosis: vertigo, Condition on Discharge: Fair Activity: Per Instructions section Lifting: Gradually increase as tolerated Non-emergency contact: Primary Care Provider and Neurologist Call non-emergency contact if: your symptoms worsen and your rectal temperature is above 100.4 Follow-up/Referrals: Nam Pacheco MD [Primary Care Provider] - (PLEASE CALL YOUR PRIMARY CARE PROVIDER TO SCHEDULE A HOSPIAL FOLLOW-UP APPOINTMENT WITHIN 7-10 DAYS) Diet: Regular Addtl Attending Provider Instructions: you will need to follow up with neurology and ENT about the acoustic neuroma Pending Studies at Discharge: Yes Studies:: repeat b12 in 2-3 months Stand-Alone Forms: My [employer], Smoking Cessation Medications and DC Order Prescriptions: New atorvastatin 20 mg Tablet 20 mg PO QAM 30 Days Qty: 30 0RF potassium chloride 20 mEq/15 mL Liquid 20 meq PO QAM 7 Days Qty: 105 0RF cyanocobalamin (vitamin B-12) 1,000 mcg/mL Solution 1,000 mcg IM QAM 30 Days Qty: 30 0RF aspirin 81 mg capsule 81 mg PO DAILY 30 Days Qty: 30 0RF meclizine 12.5 mg tablet 12.5 mg PO BID PRN (Reason: dizziness) Qty: 14 0RF memantine 5 mg tablet 5 mg PO PM 30 Days Qty: 30 0RF Continued triamcinolone acetonide [Nasacort Allergy] 55 mcg aerosol,spray 1 spray intranasal DAILY PRN (Reason: Congestion) Rx Instructions: administer into each nostril acetaminophen [Tylenol Extra Strength] 500 mg tablet 1,000 mg PO Q8H PRN (Reason: Pain) multivitamin Tablet 1 tab PO HS cholecalciferol (vitamin D3) [Vitamin D3] 25 mcg (1,000 unit) capsule 2,000 unit PO HS Prevagen 1 cap PO QAM levothyroxine 100 mcg tablet 100 mcg PO QAM ibuprofen [Advil] 200 mg tablet 600 mg PO QID PRN (Reason: fever or pain) Qty: 30 0RF hydrocodone-acetaminophen 5-325 mg tablet 1 tab PO Q4H PRN (Reason: pain) Qty: 10 0RF Rx Instructions: 1-2 tabs every 4-6 hours as needed for pain Discharge Orders: Discharge Order (Routine); Ordered 05/17/25 Ordered By: Daniele Rajan/Other Patient Handouts: Vitamin B12 (cyanocobalamin) Injectable Solution, Vitamin B12 (cyanocobalamin) Extended Release Oral Tablet, Cognitive Impairment Mild, Vestibular Rehab Therapy, Prevent Falls Make Health Priority, Acoustic Neuroma Admission Data Admit Date/Time: 05/16/25 12:38 Attending Provider: Daniele Santos Admit Provider: Daniele Santos Primary Care Provider: Nam Pacheco Other Providers: Daniele Santos Other Interventions: Discharge Summary Assessment (RN) Last Done: 05/17/25 11:45 Hospital Stay Data Consultations 05/16/25 11:28 ED Decision to Admit Stat Diagnostic Imagining Performed 05/16/25 10:12 CT angio chest PE protocol Stat CT angio head wo/w Stat CT angio neck with con Stat 05/16/25 12:38 MRI Brain [MR brain wo/w con] Stat Pending Results Patient Have Any Pending Studies at Discharge: Yes Discharge Instructions Given to Patient (Per Discharging Provider) you will need to follow up with neurology and ENT about the acoustic neuroma Total Time Total Time Spent Total Time Spent (In Minutes): 35 Coding Level of Care Code 15776 INP/OBS DISCH >30 MIN Diagnoses Dizziness R42 Vertigo R42 Time Spent (min) 35
== END 2025-05-17 12:10 | disposition home or self-care (01) ==
LOC: ED 08:02 → EDINP 08:02 → 2W 16:49